=== PATIENT | female | born 1990 | race Caucasian/White ===

== ENCOUNTER → 2017-11-01 | Outpatient (CLI) | payer OTHER ==
[~2017-11-01] MED LIST: SPIR25TA PO; TRAN1TAB47 PO; [UNRECOGNIZED DRUG - CODE] IV; [UNRECOGNIZED DRUG - CODE] IV.; [UNRECOGNIZED DRUG - CODE] PO
[2017-11-01 17:41] LABS: BASO % 0.5 %; BASO ABS # 0.04 K/uL (0-0.2); EOS % 1.6 %; EOS ABS # 0.12 K/uL (0-0.5); HEMATOCRIT 42.2 % (37-47); HEMOGLOBIN 14.5 g/dL (12.0-16.0); IG# 0.01 K/uL (0.00-0.02); LYMPH % 35.3 %; LYMPH ABS # 2.63 K/uL (1.2-3.4); MEAN CELL VOLUME 86.5 fL (80-100); MEAN CORPUSCULAR HEMOGLOBIN 29.7 pg (25-34); MEAN CORPUSCULAR HGB CONC 34.4 g/dl (32-36); MEAN PLATELET VOLUME 9.3 fL (7.4-10.4); MONO % 6.2 %; MONO ABS # 0.46 K/uL (0.11-0.59); NEUT % 56.3 %; NEUT ABS # 4.19 K/uL (1.4-6.5); PLATELET COUNT 247 K/uL (130-400); RED CELL DISTRIBUTION WIDTH CV 12.1 % (11.5-14.5); RED CELL DISTRIBUTION WIDTH SD 38.3 fL (36.4-46.3); WHITE BLOOD COUNT 7.45 K/uL (4.8-10.8)
[2017-11-01 17:50] LABS: ALBUMIN 4.3 gm/dl (3.4-5.0); ALKALINE PHOSPHATASE 41 U/L (45-117); AST/SGOT 15 U/L (15-37); BLOOD UREA NITROGEN 14 mg/dl (7-18); CALCIUM 9.5 mg/dl (8.5-10.1); CARBON DIOXIDE 27 mmol/L (21-32); CREATININE 0.92 mg/dl (0.60-1.20); GLUCOSE 79 mg/dl (70-99); POTASSIUM 3.5 mmol/L (3.5-5.1); SODIUM 137 mmol/L (136-145)
[2017-11-01 18:01] LABS: ALT/SGPT 20 U/L (12-78)
== END | disposition home or self-care (01) ==
LOC: C.LABBFT 15:11
PROVIDERS: ATTEND Physician Assistant Medical
DX: R10.11 Right upper quadrant pain (principal); R53.83 Other fatigue

== ENCOUNTER → 2017-11-04 | Outpatient (CLI) | payer OTHER | END | disposition home or self-care (01) | LOC: C.LABBFT 12:23 | PROVIDERS: ATTEND Physician Assistant Medical | DX: E80.6 Other disorders of bilirubin metabolism (principal) ==

== ENCOUNTER → 2017-11-09 | Outpatient (CLI) | payer OTHER ==
--- NOTE | 2017-11-09 07:28 | DIAGNOSTIC IMAGING REPORT ---
BILIARY ULTRASOUND CLINICAL HISTORY: R10.11 right upper quadrant abdominal pain COMPARISON STUDY: No previous studies for comparison. FINDINGS: Pancreas appears sonographically normal. The liver appears sonographically normal. The gallbladder appears sonographically normal. There is no ductal dilatation. The common bile duct measures 3 mm. IMPRESSION: Normal biliary ultrasound. Electronically signed by: Duarte Castellanos M.D. 11/09/2017 7:26 AM Dictated Date/Time: 11/09/2017 7:26 AM
== END | disposition home or self-care (01) ==
LOC: C.ULTR 06:44
PROVIDERS: ATTEND Physician Assistant Medical
DX: R10.11 Right upper quadrant pain (principal)

== ENCOUNTER → 2017-11-28 | Outpatient (CLI) | payer OTHER ==
[~2017-11-28] MED LIST changes: +SINCALIDE INJ 1.2 MCG in SODIUM CHLORIDE 0.9% 100ML 100 ML IV SCH
--- NOTE | 2017-11-28 13:43 | DIAGNOSTIC IMAGING REPORT ---
NUCLEAR MEDICINE HEPATOBILIARY SCAN CLINICAL HISTORY: Right upper quadrant abdominal pain COMPARISON STUDY: Gallbladder ultrasound dated 11/09/2017 FINDINGS: The patient was injected with 5.5 mCi of technetium 99m Choletec. Sequential anterior imaging was performed. Sequential anterior imaging was performed. No gallbladder was visualized at 1 hour. The patient refused morphine. Imaging was carried out to 3 hours. The gallbladder was visualized on the 120 minute image. There was normal passage of activity into small bowel. The findings can be seen in chronic cholecystitis. The cystic duct is patent, and therefore there is no evidence of acute cholecystitis IMPRESSION: 1. No evidence of acute cholecystitis 2. Delayed visualization of the gallbladder, a finding which can be seen in chronic cholecystitis Electronically signed by: Duarte Castellanos M.D. 11/28/2017 1:42 PM Dictated Date/Time: 11/28/2017 1:38 PM
== END | disposition home or self-care (01) ==
LOC: C.NUCL 09:56
PROVIDERS: ATTEND Physician Assistant Medical
DX: R10.11 Right upper quadrant pain (principal)

== ENCOUNTER → 2018-01-16 | Outpatient (CLI) | payer OTHER ==
[~2018-01-16] MED LIST changes: -SINCALIDE INJ 1.2 MCG in SODIUM CHLORIDE 0.9% 100ML 100 ML IV SCH
== END | disposition home or self-care (01) ==
LOC: C.LABBFT 11:15
PROVIDERS: ATTEND Internal Medicine
DX: R53.83 Other fatigue (principal)